=== PATIENT | female | born 1990 | race Caucasian/White ===

== ENCOUNTER 2016-02-14 16:49 | Inpatient (IN) ==
[2016-02-14] MEDS ORDERED: MEPERIDINE 50 MG/1 ML VIAL IV PRN (17:17)
[2016-02-14] MEDS ORDERED: BUTORPHANOL 2 MG/ML VIAL IV PRN (17:17)
[2016-02-14] MEDS ORDERED: ONDANSETRON 4 MG/2 ML VIAL IV PRN (17:17)
[2016-02-14] MEDS ORDERED: ePHEDrine 50 MG/ML AMP IV PRN (17:19)
[2016-02-14] MEDS ORDERED: LACTATED RINGERS 1,000 ML IV ONE (17:19)
[2016-02-14] MEDS ORDERED: CITRIC ACID/SODIUM CITRATE 30 ML UDCUP PO ONE (17:19)
[2016-02-14] MEDS ORDERED: hydrOXYzine HCL 25 MG/1 ML VIAL IM PRN (17:19)
[2016-02-14] MEDS ORDERED: fentaNYL 2 MCG/ROPIV 0.2% EPID 150 ML EPIDURAL SCH (17:19)
[2016-02-14] MEDS ORDERED: PROMETHAZINE 25 MG/1 ML VIAL IM ONE (17:19)
[2016-02-14] MEDS ORDERED: FAMOTIDINE 20 MG/2 ML VIAL IV ONE (17:19)
[2016-02-14] MEDS ORDERED: diphenhydrAMINE 50 MG/1 ML VIAL IV PRN ×2 (17:19)
[2016-02-14] MEDS ORDERED: OXYTOCIN/LR 20 UNIT/1,000 ML BAG IV SCH (17:30)
[2016-02-14] MEDS: LACTATED RINGERS 1,000 ML IV SCH (17:31)
[2016-02-14 17:42] LABS: Basophils % 0.4 % (0.0-0.8); Eosinophils # 0.3 10*3/uL (0.0-0.87); Eosinophils % 2.2 % (0.00-10.9); Hematocrit 33.6 VOL% (35.7-47.0); Hemoglobin 10.9 GM/DL (12.0-16.0); Immature Granulocytes % 1.3 %; Immature Granulocytes Absolute 0.15 #; Lymphocytes # 1.6 10*3/uL (1.4-4.0); Lymphocytes % 14.5 % (21.3-54.2); Mean Corpuscular HGB Conc 32.4 GM/DL (32-36); Mean Corpuscular Hemoglobin 29 PG (27-34); Mean Corpuscular Volume 89.1 FL (87-102); Mean Platelet Volume 9.8 FL (9.6-12.0); Monocytes # 0.8 10*3/uL (0.11-0.8); Monocytes % 7.3 % (1.7-12.7); Neutrophils # 8.3 10*3/uL (1.4-7.4); Neutrophils % 74.3 % (38.7-73.9); Platelet Count 271 10*3/uL (130-400); Red Blood Count 3.77 10*6/uL (3.8-5.5); Red Cell Distribution Width 13.2 % (9.3-17.3); White Blood Count 11.2 10*3/uL (4.5-13.71)
[2016-02-14] MEDS: CLINDAMYCIN INJ 900 MG in PREMIX 1 EACH IV SCH (17:48)
[2016-02-14] MEDS ORDERED: ePHEDrine 50 MG/ML AMP ONE (21:53)
[2016-02-14 23:24] LABS: Apearance,Urine CLEAR (Clear); Bacteria,Urine Occasional /HPF (Few); Bilirubin,Urine Negative (Negative); Blood, Urine Negative (Negative); Glucose,Urine (UA) Negative (Negative); Ketones,Urine 20 mg/dL (Negative); Mucus,Urine Occasional /LPF (Occasional); Nitrite,Urine Negative (Negative); Protein,Urine Negative; Squamous Epithelial Cell,Urine Occasional /HPF (0-10); Urine Color Yellow (Yellow); Urine Specific Gravity 1.008 (1.001-1.035); Urine Urobilinogen < 2.0 EU/DL (0.2-1.0)
[2016-02-15] MEDS: CLINDAMYCIN INJ 900 MG in PREMIX 1 EACH IV SCH (00:40)
[2016-02-15] MEDS: LACTATED RINGERS 1,000 ML IV SCH (01:43)
[2016-02-15] MEDS ORDERED: OXYTOCIN 10 UNIT/ML VIAL IM ONE (09:19)
[2016-02-15] MEDS ORDERED: LIDOCAINE 1% 50 ML VIAL ONE (10:43)
--- NOTE | 2016-02-15 11:13 | OB/GYN History & Physical ---
History of Present Illness Chief complaint: ruptured water History of present illness: Ms. Edwards is a 25 year old female with an EDC of 03/01/16 who presented to the office yesterday at 37 5/7 weeks with complaints of watery discharge ....seh was sent over to labor and delivery for confirmation and presented grossly ruptured... Home Medications Medication Instructions Recorded Confirmed Type Multivitamin () [ 1 tablet PO DAILY 02/14/16 02/14/16 History Vitamin] Allergies Allergy/AdvReac Type Severity Reaction Status Date / Time Penicillins Allergy Unknown Unknown/Unable Verified 02/02/16 09:52 to obtain Medical,Surgical,& Family Hx - Medical History Psychological: No history of: Anxiety Disorders, ADHD, Behavior Problems Endocrine: History of: Thyroid Disorder (HYPOTHYROIDISM) Hematology: No history of: Blood Transfusion Reaction Other: No history of: Anesthesia Reactions, Anaphylaxis, Cancer - Surgical History Cardiac Surgeries: Patient Denies: Cardiac Catheterization Abdominal Surgeries: Patient denies: Abdominal Surgery Reproductive Surgeries: Patient denies;: Genitourinary Surgery, Gynecologic Surgery - Family History Family History: Reports;: Family Cancer, Family Diabetes (MOTHER WITH BREAST CA) , Family Hypertension (MGM), Family Stroke (PGF) Denies;: Family Anesthesia Reaction, Family Heart Disease, Family Hematology , Family Psychiatric Problems, Additional Family History - Social History Smoking Status: Never smoker Frequency of Alcohol Use: None Type of Drug Use: None Exam CLINICAL OB - Constitutional Vitals: Vital Signs Temp Pulse Resp BP 02/15/16 08:00 98.8 F 02/15/16 04:00 98.2 F 105 H 18 107/55 02/15/16 00:00 97.6 F 97 H 20 118/59 02/14/16 20:00 97.8 F 91 H 20 128/65 General appearance: normal weight - Head Head exam: Present: normal inspection - Eye Eye exam: Present: EOMI - ENT ENT exam: Present: normal exam, normal external ear exam - Neck Neck exam: Present: normal inspection. Absent: lymphadenopathy - Respiratory Respiratory exam: Present: clear to auscultation bilaterally. Absent: accessory muscle use, chest wall tenderness, decreased breath sounds, prolonged expiratory phase - Breast Breasts: as per HPI Menstruation: as per HPI - Cardiovascular Cardiovascular exam: Present: regular rate and rhythm - GI/Abdominal GI/Abdominal exam: Present: normal bowel sounds. Absent: ascites, distended, firm, guarding - Extremities Exam Extremities exam: Present: normal inspection, normal capillary refill - Back Exam Back exam: Present: normal inspection. Absent: CVA tenderness (L), CVA tenderness (R), muscle spasm - Neurological Exam Neurological exam: Present: alert, oriented X3, normal gait - Psychiatric Psychiatric exam: Present: normal affect Assessment and Plan - Time spent with patient Time spent with patient: Greater than 30 minutes (1) SROM (spontaneous rupture of membranes) Status: Acute Current Visit: Yes Results - Labs CBC & BMP: 02/14/16 17:32
[2016-02-15] MEDS ORDERED: WITCH HAZEL PADS 100/JAR TOP PRN (11:19)
[2016-02-15] MEDS ORDERED: BENZOCAINE 20%/MENTHOL 0.5% SPRAY 56 GM CAN TOP PRN (11:19)
[2016-02-15] MEDS ORDERED: HYDROCORTISONE 2.5% RECTAL CREAM 30 GM TUBE TOP PRN (11:19)
[2016-02-15] MEDS ORDERED: oxyCODONE/ACETAMINOPHEN 5-325 MG TABLET PO PRN (11:19)
[2016-02-15] MEDS ORDERED: BISACODYL 10 MG SUPP RECTAL PRN (11:19)
[2016-02-15] MEDS ORDERED: OXYTOCIN/LR 20 UNIT/1,000 ML BAG IV ONE (11:19)
[2016-02-15] MEDS ORDERED: MEASLES/MUMPS/RUBELLA VACCINE 0.5 ML VIAL SUBCUT ONE (11:19)
[2016-02-15] MEDS ORDERED: DIPH/TET/ACEL PERT BOOSTER VACCINE 0.5 ML VIAL IM ONE (11:19)
[2016-02-15] MEDS ORDERED: ONDANSETRON 4 MG/2 ML VIAL IV PRN (11:19)
[2016-02-15] MEDS ORDERED: ACETAMINOPHEN 325 MG TABLET PO PRN (11:19)
[2016-02-15] MEDS ORDERED: LANOLIN 50% CREAM 0.3 OZ TUBE TOP PRN (11:19)
--- NOTE | 2016-02-15 11:19 | Operative Note ---
Date of procedure: 02/15/16 Pre-op diagnosis: SROM......37 6/7 weeks Post-op diagnosis: same Procedure: vaginal delivery ......PT admitted after she presented with SROM of clear fluid....she progressed to 2-3 cm .....had irregluar contractions and then had Pitocin started as well as an epidural for pain relief....no other issues .. no fever.....she progressed to complete and pushed for less thatn 1 hour with subsequent delivery of the head suctioned at the perineum with clear fluid noted.....the body was delivered atraumatically and placed ont eh drapes...the cord was doubly clamped and cut ...cord blood was obtained ...the perineum revealed a midline tear repaired under local lidocaine with 3-0 vicryl in a running fashion after the crown stitch was reapproximated ...well tolerated .... skin to skin .. Breast FEmale APgars pending weight pending placenta normal cord blood collected EBL 100 cc... Anesthesia: epidural Surgeon / Physician: Chasity Hinojosa Estimated blood loss: minimal Specimens: other (placenta and cord blood) Condition: stable Disposition: floor Results - Labs CBC & BMP: 02/14/16 17:32 Discharge Plan - Discharge Medications No Action Multivitamin () [ Vitamin] 1 tablet PO DAILY - Follow Up or Referral - Forms/Instructions
[2016-02-15] MEDS: oxyCODONE/ACETAMINOPHEN 5-325 MG TABLET PO PRN ×3 (11:30→22:30)
[2016-02-15] MEDS ORDERED: RHO(D) IMMUNE GLOBULIN 300 MCG SYRINGE IM ONE (12:00)
[2016-02-15] MEDS ORDERED: LIDOCAINE 2% TOP JELLY 5 ML TUBE TOP SCH (12:00)
[2016-02-15] MEDS: IBUPROFEN 800 MG TABLET PO PRN (13:11)
[2016-02-15] MEDS: DOCUSATE SODIUM 100 MG CAPSULE PO SCH (21:30)
[2016-02-16 05:30] LABS: Basophils % 0.1 % (0.0-0.8); Eosinophils # 0.2 10*3/uL (0.0-0.87); Eosinophils % 1.3 % (0.00-10.9); Hemoglobin 9.1 GM/DL (12.0-16.0); Immature Granulocytes Absolute 0.15 #; Lymphocytes # 2.3 10*3/uL (1.4-4.0); Lymphocytes % 15.3 % (21.3-54.2); Mean Corpuscular HGB Conc 32.5 GM/DL (32-36); Mean Corpuscular Hemoglobin 29 PG (27-34); Mean Corpuscular Volume 88.9 FL (87-102); Mean Platelet Volume 10.1 FL (9.6-12.0); Neutrophils # 11.2 10*3/uL (1.4-7.4); Neutrophils % 75.3 % (38.7-73.9); Platelet Count 243 10*3/uL (130-400); Red Blood Count 3.15 10*6/uL (3.8-5.5); Red Cell Distribution Width 13.3 % (9.3-17.3); White Blood Count 14.9 10*3/uL (4.5-13.71)
[2016-02-16] MEDS: DOCUSATE SODIUM 100 MG CAPSULE PO SCH ×2 (08:54→22:00)
[2016-02-16] MEDS: oxyCODONE/ACETAMINOPHEN 5-325 MG TABLET PO PRN (08:55)
[2016-02-16] MEDS: IBUPROFEN 800 MG TABLET PO PRN (14:02)
[2016-02-17] MEDS: IBUPROFEN 800 MG TABLET PO PRN (00:02)
[2016-02-17] MEDS: oxyCODONE/ACETAMINOPHEN 5-325 MG TABLET PO PRN (00:03)
[2016-02-17] MEDS: DOCUSATE SODIUM 100 MG CAPSULE PO SCH ×2 (09:11→20:38)
--- NOTE | 2016-02-17 13:35 | Discharge Summary ---
Hospital Course - Hospital Course Hospital Course: Pt admitted with confirmed ruptured membranes ..started on Pitocin since she had irregular contractions and progressed to compete....Dominique delivered without complications and had her baby undergo light therapy for an elevated bili of 13....Pt also has had some mildly elevated blood pressures and had had some increased edema and we will try diuresing some of the extra fluid to decrease her chances of having pulmonary edema from trying to centralize thisd fluid with elevated blood pressures ....Dominique will take dyazide today and supplement today and in am .....will see her on Saturday either at 8:30 or right after school if she goes on saturday ..... - Time spent with patient Time with patient DS: Greater than 30 minutes Diagnosis - Discharge Diagnosis (1) SROM (spontaneous rupture of membranes) Status: Acute Specialty Discharge - Follow Up or Referrals - Discharge Medications No Action Multivitamin () [ Vitamin] 1 tablet PO DAILY Discharge Plan - Discharge Data Disposition: Disch To Home/Self Care Condition at Discharge: Stable Discharge Diet: heart healthy, low salt diet Activity: resume usual activities as tolerated Hygiene: no restrictions Weight Bearing at Discharge: full weight bearing Driving: no restrictions Contact your physician if you experience:: fever over 101, Difficulty voiding, Shortness of breath, Bleeding - Discharge Medications No Action Multivitamin () [ Vitamin] 1 tablet PO DAILY - Follow Up or Referral - Forms/Instructions Instructions: Perineal Care (DC), Vaginal Delivery (DC), Bleeding (DC) Additional Discharge Instructions: follow up with me on Saturday either at 8:30 or after classes......Pt will present with a blood perssures log...Pt also instructed on signs and symptoms of preeclampsia and will ahve a handout available ...... Exam - Constitutional Vitals: Period Temp Pulse Resp BP Sys/Guerrero Pulse Ox Last 24 Hr 97 F-98.0 F 64-93 20-20 129-162/62-85 97-98 General appearance: normal weight - Head Head exam: Present: normal inspection - ENT ENT exam: Present: normal exam, normal external ear exam - Neck Neck exam: Present: normal inspection - Respiratory Respiratory exam: Present: clear to auscultation bilaterally. Absent: accessory muscle use, chest wall tenderness, decreased breath sounds, prolonged expiratory phase - Cardiovascular Cardiovascular exam: Present: regular rate and rhythm - GI/Abdominal GI/Abdominal exam: Present: normal bowel sounds. Absent: ascites, distended, firm, guarding - Extremities Exam Extremities exam: Present: normal inspection, normal capillary refill - Back Exam Back exam: Present: normal inspection. Absent: CVA tenderness (L), CVA tenderness (R), muscle spasm - Neurological Exam Neurological exam: Present: alert, oriented X3 - Psychiatric Psychiatric exam: Present: normal affect, normal mood - Skin Skin exam: Present: normal color, warm DS: Provider Date of admission: 02/14/16 17:17 Primary care physician: Sharona Lewis NP Attending physician on admission: Efrain Maza Consults: 02/14/16 17:28 Consult to Dietitian [CONS] Routine Reason for Dietitian: Dietary Consult 02/15/16 11:20 Consult to Interior Paneler [CONS] Routine Consult Interior Paneler: Breast Feeding Discharging clinician: Efrain Maza Expected date of discharge: 02/18/16
--- NOTE | 2016-02-17 13:39 | OB/GYN Progress Note ---
Assessment and Plan (1) SROM (spontaneous rupture of membranes) Status: Acute Current Visit: Yes [employer] - PN: Subj Interval history: eelvated blood pressures labiel overnight ....1puls pitting edema ...Baby undergoing phototherapy for elevated bili ....no other issues .....will discahrge in am if baby is discahrged and will follow blood pressures overnight and initiate dyazide with bottle feeding for today and again in am to diurese some of the additional volume .....will need to follow-up on Saturday with a blood pressure log to folllow-up .... Exam [employer] - Constitutional Vitals: Vital Signs Temp Pulse Resp BP Pulse Ox 02/17/16 11:12 97 F L 76 20 131/75 97 02/17/16 07:23 97.2 F L 64 20 129/80 97 02/17/16 06:00 20 02/17/16 04:00 97.9 F 80 20 139/78 98 02/17/16 02:00 20 02/17/16 00:00 98.0 F 93 H 20 162/85 98 02/16/16 19:55 97.6 F 78 20 136/62 97 02/16/16 15:42 97.3 F L 77 20 141/74 98 General appearance: normal weight - Head Head exam: Present: normal inspection - Eye Eye exam: Present: EOMI - ENT ENT exam: Present: normal exam, normal external ear exam - Neck Neck exam: Present: normal inspection - Respiratory Respiratory exam: Present: clear to auscultation bilaterally. Absent: accessory muscle use, chest wall tenderness, decreased breath sounds - Breast Breasts: as per HPI - Cardiovascular Cardiovascular exam: Present: regular rate and rhythm - GI/Abdominal GI/Abdominal exam: Present: normal bowel sounds - Extremities Exam Extremities exam: Present: normal inspection, normal capillary refill, edema - Back Exam Back exam: Present: normal inspection. Absent: CVA tenderness (L), CVA tenderness (R) - Neurological Exam Neurological exam: Present: alert, oriented X3 - Psychiatric Psychiatric exam: Present: normal affect, normal mood - Skin Skin exam: Present: normal color, warm Results - Labs CBC & BMP: 02/16/16 05:04
[2016-02-17] MEDS ORDERED: TRIAMTERENE/HCTZ 37.5-25 MG CAPSULE PO ONE (16:00)
[2016-02-17] MEDS ORDERED: SIMETHICONE CHEW 80 MG TABLET PO PRN (20:12)
[2016-02-17] MEDS ORDERED: MAGNESIUM HYDROXIDE SUSP 30 ML UDCUP PO PRN (20:12)
[2016-02-18 08:01] VITALS: BP 145/68
[2016-02-18] MEDS: IBUPROFEN 800 MG TABLET PO PRN (08:25)
[2016-02-18] MEDS ORDERED: TRIAMTERENE/HCTZ 37.5-25 MG CAPSULE PO SCH (09:00)
[2016-02-18] MEDS: DOCUSATE SODIUM 100 MG CAPSULE PO SCH (09:00)
== END 2016-02-18 11:30 | disposition home or self-care (01) | DRG 775 ==
LOC: N.LDOUT 16:49 → N.LD 16:51 → N.OB 02-15 13:01
PROVIDERS: ADMIT Obstetrics & Gynecology; ATTEND Obstetrics & Gynecology